=== PATIENT | female | born 1965 | race African-American/Black ===

== ENCOUNTER 2025-02-06 14:12 | Inpatient (IN) | payer BC, MEDICAID, MEDICARE ==
[~2025-02-06] VITALS: Ht 167.6 cm; Wt 51.3 kg
[2025-02-06] VITALS (20 sets, daily range): BP systolic 109–192; BP diastolic 79–137; PULSE 71–107; RESP 12–25; TEMP 36.4–36.418; O2SAT 99–100
[2025-02-06] MEDS: ROCURONIUM BROMIDE 10MG/ML VIAL 5ML IV ONE (14:30)
[2025-02-06] MEDS ORDERED: CEFTRIAXONE 1GM/50ML 50 ML IV ONE (14:30)
[2025-02-06] MEDS: ETOMIDATE 2MG/ML 10ML VIAL IV ONE (14:30)
[2025-02-06] MEDS ORDERED: FENTANYL 2500MCG/250ML PMX 250 ML IV SCH (14:30)
[2025-02-06 14:57] LABS: BASOPHILS % 1.2 % (0.0-2.0); EOSINOPHILS % 1.5 % (0.0-5.0); HEMATOCRIT. 26.0 % (36.0-48.0); HEMOGLOBIN. 8.2 g/dL (12.0-16.0); LYMPHOCYTES % 23.9 % (20.0-50.0); MEAN PLATELET VOLUME 7.2 fl (7.4-10.4); MONOCYTES % 9.5 % (2.0-8.0); NEUTROPHILS % 63.9 % (40.0-76.0); PLATELET 363 x1000/uL (130-400); RED BLOOD CELL COUNT 2.70 mill/uL (4.2-5.4); RED CELL DISTRIBUTION WIDTH 14.5 % (11.6-14.6)
[2025-02-06] MEDS: SODIUM CHLORIDE 0.9% (SEPSIS BOLUS) IV ONE (15:05)
[2025-02-06 15:06] LABS: INR 1.0
[2025-02-06 15:08] LABS: UREA NITROGEN BLOOD 76 mg/dL (9-23)
[2025-02-06] MEDS: CEFTRIAXONE 1GM/50ML 50 ML IV NR (15:09)
[2025-02-06 15:10] LABS: ASPARTATE AMINOTRANSFERASE 38 IU/L (<34); BILIRUBIN DIRECT < 0.1 mg/dL (<=3.0); BILIRUBIN TOTAL 0.2 mg/dL (0.1-1.0); PROTEIN TOTAL 7.6 g/dL (6.0-8.3)
[2025-02-06] MEDS: PROPOFOL 10MG/ML 100ML 100 ML IV SCH (15:11)
[2025-02-06 15:13] LABS: CREATININE 8.8 mg/dL (0.6-1.0)
[2025-02-06 15:15] LABS: TROPONIN I HIGH SENSITIVITY 69 ng/L (3.0-34)
[2025-02-06 15:50] LABS: CLARITY URINE CLEAR (CLEAR); COLOR URINE YELLOW (YELLOW); GLUCOSE URINE TRACE (NEGATIVE); KETONES URINE NEGATIVE (NEGATIVE); LEUKOCYTE ESTERASE URINE 1+ (NEGATIVE); NITRITE URINE NEGATIVE (NEGATIVE); OCCULT BLOOD URINE 2+ (NEGATIVE); PH URINE 6.5 (4.5-8.0); PROTEIN URINE 3+ (NEGATIVE); SPECIFIC GRAVITY URINE 1.012 (1.005-1.030); UROBILINOGEN URINE 0.2 E.U./dL (0.2-1.0)
[2025-02-06] MEDS: FENTANYL 2500MCG/250ML PMX 250 ML IV PRN (15:59)
[2025-02-06 16:22] LABS: *AMPHETAMINES SCREEN URINE NEGATIVE (NEGATIVE); *BARBITURATES SCREEN URINE NEGATIVE (NEGATIVE); *BENZODIAZEPINES SCREEN URINE NEGATIVE (NEGATIVE); *COCAINE SCREEN URINE PRESUMPTIVE POSITIVE (NEGATIVE); CANNABINOID URINE SCREEN NEGATIVE (NEGATIVE); ECSTASY MDMA SCREEN URINE NEGATIVE (NEGATIVE); METHADONE URINE SCREEN NEGATIVE (NEGATIVE); OPIATES URINE SCREEN NEGATIVE (NEGATIVE); PHENCYCLIDINE URINE SCREEN NEGATIVE (NEGATIVE)
[2025-02-06 16:26] LABS: SQUAMOUS EPITHELIAL CELL URINE 3+ /lpf (RARE/1+)
[2025-02-06 16:27] LABS: RBC URINE 15-25 /hpf (0-2); WBC URINE 25-50 /hpf (0-2)
[2025-02-06 16:28] LABS: BACTERIA URINE 1+
[2025-02-06 17:21] LABS: BG BASE EXCESS -9.9 mmol/L (-2.0-3.0); BG CARBOXYHEMOGLOBIN 0.3 % (0.5-1.5); BG DEOXYHEMOGLOBIN 0.1 % (0.0-5.0); BG FRACTION INSPIRED OXYGEN 100; BG HCO3 ACT 16.2 mmol/L (21.0-28.0); BG METHEMOGLOBIN 0.3 % (0.5-1.5); BG OXYGEN SATURATION 99.9 % (94.0-98.0); BG OXYHEMOGLOBIN 99.3 % (94.0-98.0); BG PCO2 36.4 mmHg (32.0-45.0); BG PEEP (cmH2O) 5.0 cmH2O; BG PH 7.266 (7.350-7.450); BG PO2 444.8 mmHg (83.0-108.0); BG SAMPLE SITE RIGHT RADIAL; BG TIDAL VOLUME(mL) 400.0 mL; BG TOTAL HEMOGLOBIN 10.6 g/dL (12.0-16.0); BG VENT MODE VENT - AC; BG VENT RATE 22.0 set
[2025-02-06] MEDS: SODIUM BICARBONATE 8.4% 50MEQ/50ML SYR IV SCH (18:45)
[2025-02-06] MEDS: SODIUM BICARBONATE 8.4% 50MEQ/50ML SYR IV NR (20:57)
[2025-02-06] MEDS: HYDRALAZINE HCL 50MG TABLET PO SCH (20:57)
[2025-02-06] MEDS: AMLODIPINE 10MG TABLET PO SCH (20:57)
[2025-02-06] MEDS: DEXTROSE 50% WATER 50ML SYRINGE IV NR (20:57)
[2025-02-06] MEDS: INSULIN REGULAR (HUMULIN R) 1000UNITS/10ML VIAL IV NR (20:58)
[2025-02-06] MEDS: SODIUM ZIRCONIUM CYCLOSILICATE 10GM/PACKET PO NR (21:01)
[2025-02-06] MEDS: PIPERACILLIN/TAZO 3.375G/50ML 50 ML IV SCH (21:01)
[2025-02-06] MEDS: CALCIUM GLUCONATE 1GM PREMIX 50 ML IV NR (22:01)
[2025-02-06] MEDS: HYDRALAZINE 20MG/ML VIAL IV PRN (22:02)
[2025-02-06] MEDS ORDERED: DOCUSATE SODIUM 100MG CAPSULE PO PRN (22:15)
[2025-02-06] MEDS ORDERED: IPRATROPIUM/ALBUTEROL 0.5-3(2.5)MG/3ML NEB HHN PRN (22:15)
[2025-02-06] MEDS ORDERED: ACETAMINOPHEN 325MG TABLET PO PRN (22:15)
[2025-02-06] MEDS ORDERED: GUAIFENESIN 200MG/10ML SUGAR FREE UDC PO PRN (22:15)
[2025-02-06] MEDS ORDERED: ONDANSETRON HCL 4MG/2ML INJ IV PRN (22:15)
[2025-02-06] MEDS: PANTOPRAZOLE SODIUM 40 MG/VIAL IV SCH (23:28)
[2025-02-06] MEDS: AZITHROMYCIN 500MG/250ML 250 ML IV SCH (23:29)
[2025-02-06] MEDS: VANCOMYCIN 1GM/200ML PMX (BAXTER) IV SCH (23:29)
[2025-02-06] MEDS: DEXT 5%/0.45% NACL 1000ML 1,000 ML IV SCH (23:29)
[2025-02-06 23:46] LABS: PLATELET 383 x1000/uL (130-400); RED BLOOD CELL COUNT 3.20 mill/uL (4.2-5.4); RED CELL DISTRIBUTION WIDTH 14.0 % (11.6-14.6)
[2025-02-07] VITALS (95 sets, daily range): BP systolic 83–132; BP diastolic 57–97; PULSE 70–109; RESP 9–30; TEMP 36.4–37.1; O2SAT 96–100
[2025-02-07] LABS: TRIGLYCERIDE 93 mg/dL (0-150); UREA NITROGEN BLOOD 70 mg/dL (9-23)
[2025-02-07] MEDS ORDERED: FENTANYL 2500MCG/250ML PMX 250 ML IV PRN
[2025-02-07 00:01] LABS: LDL CHOLESTEROL 129 mg/dL (5-100)
[2025-02-07 00:02] LABS: PHOSPHORUS 5.4 mg/dL (2.5-4.9)
[2025-02-07 00:05] LABS: FOLIC ACID (FOLATE) SERUM 15.87 ng/mL (>5.38); VITAMIN B12 SERUM 1098 pg/mL (211-911)
[2025-02-07] MEDS: MIDAZOLAM 100MG/100ML PMX 100 ML IV PRN (00:08)
[2025-02-07 00:10] LABS: CREATININE 8.1 mg/dL (0.6-1.0)
[2025-02-07 02:47] LABS: INFLUENZA TYPE A Presumptive Negative (Pres. Neg.)
[2025-02-07 02:48] LABS: INFLUENZA TYPE B Presumptive Negative (Pres. Neg.)
[2025-02-07 02:50] LABS: RESPIRATORY SYNCYTIAL VIRUS Not Detected (Not Detectd)
[2025-02-07] MEDS ORDERED: NICARDIPINE 50 MG in SODIUM CHLORIDE 0.9% 230 ML IV PRN (05:00)
[2025-02-07 05:28] LABS: HEMATOCRIT. 29.8 % (36.0-48.0); HEMOGLOBIN. 9.2 g/dL (12.0-16.0); MEAN PLATELET VOLUME 7.2 fl (7.4-10.4); PLATELET 338 x1000/uL (130-400); RED BLOOD CELL COUNT 3.12 mill/uL (4.2-5.4); RED CELL DISTRIBUTION WIDTH 14.2 % (11.6-14.6)
[2025-02-07 05:49] LABS: TROPONIN I HIGH SENSITIVITY 736 ng/L (3.0-34)
[2025-02-07 05:50] LABS: CREATININE 8.3 mg/dL (0.6-1.0); T4 FREE 0.99 ng/dL (0.89-1.76); UREA NITROGEN BLOOD 77.0 mg/dL (9-23)
[2025-02-07] MEDS ORDERED: PIPERACILLIN/TAZO 3.375G/50ML 50 ML IV SCH (06:00)
[2025-02-07] MEDS ORDERED: HEPARIN 5000 UNITS/ML VIAL SUBCUT SCH (09:00)
[2025-02-07] MEDS ORDERED: PANTOPRAZOLE SODIUM 40 MG/VIAL IV SCH ×2 (09:00)
[2025-02-07] MEDS: THIAMINE HCL 100MG TABLET PO SCH (09:16)
[2025-02-07] MEDS: ENOXAPARIN 30MG/0.3ML SYR SUBCUT SCH (09:19)
[2025-02-07] MEDS: SODIUM ZIRCONIUM CYCLOSILICATE 10GM/PACKET NG NR (10:08)
[2025-02-07] MEDS ORDERED: DEXTROSE 50% WATER 50ML SYRINGE IV PRN (11:00)
[2025-02-07] MEDS: PROPOFOL 10MG/ML 100ML 100 ML IV PRN (11:20)
[2025-02-07] MEDS: BLOOD SUGAR DIAGNOSTIC STRIP TEST SCH (11:30)
[2025-02-07] MEDS: INSULIN LISPRO 100 UNITS/ML SUBCUT SCH (11:39)
[2025-02-07 12:18] LABS: BG BASE EXCESS -5.3 mmol/L (-2.0-3.0); BG CARBOXYHEMOGLOBIN 0.3 % (0.5-1.5); BG DEOXYHEMOGLOBIN 1.0 % (0.0-5.0); BG FRACTION INSPIRED OXYGEN 35; BG HCO3 ACT 19.9 mmol/L (21.0-28.0); BG METHEMOGLOBIN 0.3 % (0.5-1.5); BG OXYGEN SATURATION 99.0 % (94.0-98.0); BG OXYHEMOGLOBIN 98.4 % (94.0-98.0); BG PCO2 37.4 mmHg (32.0-45.0); BG PEEP (cmH2O) 5.0 cmH2O; BG PH 7.343 (7.350-7.450); BG PO2 138.2 mmHg (83.0-108.0); BG SAMPLE SITE RIGHT RADIAL; BG TIDAL VOLUME(mL) 350.0 mL; BG TOTAL HEMOGLOBIN 8.8 g/dL (12.0-16.0); BG VENT MODE VENT - AC; BG VENT RATE 26.0 set
[2025-02-07 16:33] LABS: TROPONIN I HIGH SENSITIVITY 487 ng/L (3.0-34)
[2025-02-07 16:50] LABS: LYMPHOCYTES % MANUAL 4.0 % (20.0-60.0); MONOCYTES % MANUAL 13.0 % (2.0-8.0); NEUTROPHILS % MANUAL 83.0 % (45.0-75.0); PLATELET ESTIMATE NORMAL
[2025-02-07] MEDS ORDERED: AZITHROMYCIN 500MG/250ML 250 ML IV SCH (20:00)
[2025-02-07] MEDS: PANTOPRAZOLE SODIUM 40 MG/VIAL IV SCH (21:00)
[2025-02-07] MEDS ORDERED: FAMOTIDINE 20MG/2ML VIAL IV SCH (21:00)
[2025-02-07 22:05] LABS: BG BASE EXCESS -7.1 mmol/L (-2.0-3.0); BG CARBOXYHEMOGLOBIN 0.9 % (0.5-1.5); BG DEOXYHEMOGLOBIN 3.1 % (0.0-5.0); BG FRACTION INSPIRED OXYGEN 30; BG HCO3 ACT 18.6 mmol/L (21.0-28.0); BG METHEMOGLOBIN 0.2 % (0.5-1.5); BG OXYGEN SATURATION 96.9 % (94.0-98.0); BG OXYHEMOGLOBIN 95.8 % (94.0-98.0); BG PCO2 38.2 mmHg (32.0-45.0); BG PEEP (cmH2O) 5.0 cmH2O; BG PH 7.305 (7.350-7.450); BG PO2 93.6 mmHg (83.0-108.0); BG SAMPLE SITE LEFT RADIAL; BG TOTAL HEMOGLOBIN 10.9 g/dL (12.0-16.0); BG VENT MODE VENT - CPAP
[2025-02-08] VITALS (79 sets, daily range): BP systolic 78–144; BP diastolic 47–114; PULSE 66–105; RESP 7–24; TEMP 36.4–38.1; O2SAT 96–100
[2025-02-08 05:33] LABS: BASOPHILS % 0.8 % (0.0-2.0); EOSINOPHILS % 1.6 % (0.0-5.0); HEMATOCRIT. 25.5 % (36.0-48.0); HEMOGLOBIN. 8.2 g/dL (12.0-16.0); LYMPHOCYTES % 11.9 % (20.0-50.0); MEAN PLATELET VOLUME 7.5 fl (7.4-10.4); MONOCYTES % 9.1 % (2.0-8.0); NEUTROPHILS % 76.6 % (40.0-76.0); PLATELET 314 x1000/uL (130-400); RED BLOOD CELL COUNT 2.70 mill/uL (4.2-5.4); RED CELL DISTRIBUTION WIDTH 14.4 % (11.6-14.6)
[2025-02-08 05:42] LABS: TRIGLYCERIDE 81 mg/dL (0-150)
[2025-02-08 05:44] LABS: UREA NITROGEN BLOOD 59.0 mg/dL (9-23)
[2025-02-08 05:48] LABS: TROPONIN I HIGH SENSITIVITY 314 ng/L (3.0-34)
[2025-02-08 05:49] LABS: CREATININE 8.0 mg/dL (0.6-1.0)
[2025-02-08 09:10] LABS: FOLATE HEMATOCRIT 29.4 % (34.0-46.6)
[2025-02-08 10:17] LABS: BG BASE EXCESS -5.6 mmol/L (-2.0-3.0); BG CARBOXYHEMOGLOBIN 0.9 % (0.5-1.5); BG DEOXYHEMOGLOBIN 1.2 % (0.0-5.0); BG FLOW(L/min) 2.00 L/min; BG FRACTION INSPIRED OXYGEN 28; BG HCO3 ACT 20.2 mmol/L (21.0-28.0); BG METHEMOGLOBIN 0.3 % (0.5-1.5); BG OXYGEN SATURATION 98.8 % (94.0-98.0); BG OXYHEMOGLOBIN 97.6 % (94.0-98.0); BG PCO2 40.8 mmHg (32.0-45.0); BG PH 7.313 (7.350-7.450); BG PO2 134.7 mmHg (83.0-108.0); BG SAMPLE SITE LEFT BRACHIAL; BG TOTAL HEMOGLOBIN 8.6 g/dL (12.0-16.0); BG VENT MODE NASAL CANNULA
[2025-02-08] MEDS ORDERED: HYDROCODONE/ACETAMINOPHEN 10/325MG TABLET PO PRN (13:30)
[2025-02-08] MEDS ORDERED: NALOXONE HCL 0.4MG/ML VIAL IV PRN ×2 (13:45→14:00)
[2025-02-08] MEDS: HYDROCODONE/ACETAMINOPHEN 5/325MG TABLET PO PRN (13:54)
[2025-02-08] MEDS: SODIUM CHLORIDE 0.45% 1,000 ML IV SCH (17:30)
[2025-02-08] MEDS: AMOXICILLIN/POTASSIUM CLAVULANATE 500/125MG TAB PO SCH (20:31)
[2025-02-08] MEDS: ACETAMINOPHEN 325MG TABLET PO PRN (20:33)
[2025-02-08] MEDS ORDERED: AMOXICILLIN/POTASSIUM CLAVULANATE 875/125MG TAB PO SCH (21:00)
[2025-02-09] VITALS: BP 86/54; PULSE 82; RESP 16; TEMP 36.6; O2SAT 100
[2025-02-09] MEDS: SODIUM CHLORIDE 0.9% 250 ML IV ONE (00:30)
[2025-02-09 08:00] VITALS: BP 117/78; PULSE 85; RESP 16; TEMP 36.1; O2SAT 100
[2025-02-09] MEDS: FOLIC ACID/VITAMIN B COMP W-C TABLET PO SCH (08:56)
[2025-02-09 09:14] LABS: UREA NITROGEN BLOOD 56 mg/dL (9-23)
[2025-02-09 09:16] LABS: PHOSPHORUS 6.4 mg/dL (2.5-4.9)
[2025-02-09 09:25] LABS: CREATININE 7.8 mg/dL (0.6-1.0)
[2025-02-09 09:33] LABS: BASOPHILS % 1.0 % (0.0-2.0); EOSINOPHILS % 6.8 % (0.0-5.0); HEMATOCRIT. 26.2 % (36.0-48.0); HEMOGLOBIN. 8.3 g/dL (12.0-16.0); LYMPHOCYTES % 16.0 % (20.0-50.0); MEAN PLATELET VOLUME 7.4 fl (7.4-10.4); MONOCYTES % 13.1 % (2.0-8.0); NEUTROPHILS % 63.1 % (40.0-76.0); PLATELET 305 x1000/uL (130-400); RED BLOOD CELL COUNT 2.75 mill/uL (4.2-5.4); RED CELL DISTRIBUTION WIDTH 14.5 % (11.6-14.6)
[2025-02-09 10:18] LABS: BG BASE EXCESS -8.1 mmol/L (-2.0-3.0); BG CARBOXYHEMOGLOBIN 0.2 % (0.5-1.5); BG DEOXYHEMOGLOBIN 3.9 % (0.0-5.0); BG FRACTION INSPIRED OXYGEN 21; BG HCO3 ACT 17.9 mmol/L (21.0-28.0); BG METHEMOGLOBIN 0.3 % (0.5-1.5); BG OXYGEN SATURATION 96.1 % (94.0-98.0); BG OXYHEMOGLOBIN 95.6 % (94.0-98.0); BG PCO2 38.7 mmHg (32.0-45.0); BG PH 7.284 (7.350-7.450); BG PO2 85.4 mmHg (83.0-108.0); BG SAMPLE SITE RIGHT BRACHIAL; BG TOTAL HEMOGLOBIN 8.7 g/dL (12.0-16.0); BG VENT MODE ROOM AIR
[2025-02-09 12:00] VITALS: BP 108/75; PULSE 79; RESP 18; TEMP 36.2; O2SAT 98
[2025-02-09] MEDS ORDERED: MAGNESIUM 2 G PREMIX 50 ML IV SCH (13:00)
[2025-02-09 16:00] VITALS: BP 136/89; PULSE 90; RESP 18; TEMP 36.1; O2SAT 96
[2025-02-09] MEDS: MUPIROCIN 2% OINT 22GM NS SCH (22:38)
[2025-02-10 04:00] VITALS: BP 133/84; PULSE 84; RESP 19; TEMP 36.5; O2SAT 97
[2025-02-10 06:25] LABS: UREA NITROGEN BLOOD 48.0 mg/dL (9-23)
[2025-02-10 06:46] LABS: CREATININE 7.0 mg/dL (0.6-1.0)
[2025-02-10 08:00] VITALS: BP 138/90; PULSE 81; RESP 14; TEMP 36.9; O2SAT 95
[2025-02-10] MEDS: MAGNESIUM OXIDE 400MG TABLET PO SCH (11:22)
[2025-02-10] MEDS: FERROUS SULFATE 325MG TABLET PO SCH (11:25)
[2025-02-10 12:00] VITALS: BP 169/99; PULSE 88; RESP 15; TEMP 36.8; O2SAT 94
[2025-02-10] MEDS: HYDRALAZINE 20MG/ML VIAL IV PRN (12:15)
[2025-02-10] MEDS: AMLODIPINE 5MG TABLET PO NR (12:46)
[2025-02-10] MEDS ORDERED: CLONIDINE 0.1MG TABLET PO PRN (13:45)
[2025-02-10 16:19] VITALS: BP 133/87; PULSE 90; RESP 18; O2SAT 100
[2025-02-10 20:00] VITALS: BP 135/97; PULSE 110; RESP 20; TEMP 36.1; O2SAT 95
[2025-02-11] VITALS: BP 134/88; PULSE 97; RESP 20; TEMP 36.1; O2SAT 96
[2025-02-11 04:00] VITALS: BP 125/95; PULSE 82; RESP 20; TEMP 36.6; O2SAT 100
[2025-02-11 08:00] VITALS: BP 125/95; PULSE 73; RESP 20; TEMP 36.3; O2SAT 99
[2025-02-11 12:00] VITALS: BP 137/94; PULSE 75; RESP 18; TEMP 36.8; O2SAT 98
[2025-02-11 13:11] LABS: FOLATE HEMOLYSATE 386.0 ng/mL (Not Estab.); FOLATE RBC 1313 ng/mL (>498)
[2025-02-11 16:00] VITALS: BP 136/88; PULSE 86; RESP 19; TEMP 36.7; O2SAT 97
[2025-02-11 20:00] VITALS: BP 146/97; PULSE 86; RESP 20; TEMP 37.1; O2SAT 99
[2025-02-11 22:27] LABS: UREA NITROGEN BLOOD 45.0 mg/dL (9-23)
[2025-02-11 22:43] LABS: CREATININE 6.6 mg/dL (0.6-1.0)
[2025-02-12] VITALS: BP 145/99; PULSE 85; RESP 20; TEMP 36.2; O2SAT 99
[2025-02-12 04:00] VITALS: BP 151/95; PULSE 79; RESP 16; TEMP 36.6; O2SAT 99
[2025-02-12 06:30] LABS: HEMATOCRIT. 26.1 % (36.0-48.0); HEMOGLOBIN. 8.4 g/dL (12.0-16.0); MEAN PLATELET VOLUME 7.3 fl (7.4-10.4); PLATELET 295 x1000/uL (130-400); RED BLOOD CELL COUNT 2.78 mill/uL (4.2-5.4); RED CELL DISTRIBUTION WIDTH 14.6 % (11.6-14.6)
[2025-02-12 06:36] LABS: UREA NITROGEN BLOOD 46.0 mg/dL (9-23)
[2025-02-12 06:49] LABS: CREATININE 6.3 mg/dL (0.6-1.0)
[2025-02-12 08:00] VITALS: BP_SYST 128; BP_SYST 129; BP_DIAS 78; BP_DIAS 88; PULSE 69; PULSE 76; RESP 17; RESP 18; TEMP 36.7; O2SAT 100; O2SAT 98
[2025-02-12 09:02] VITALS: BP 122/78; PULSE 78; RESP 18; TEMP 98.2
[2025-02-12 09:50] VITALS: BP 128/82; PULSE 78; RESP 18
[2025-02-13 18:17] LABS: EOSINOPHILS % MANUAL 9.0 % (0.0-5.0); LYMPHOCYTES % MANUAL 25.0 % (20.0-60.0); MONOCYTES % MANUAL 13.0 % (2.0-8.0); NEUTROPHILS % MANUAL 53.0 % (45.0-75.0); PLATELET ESTIMATE NORMAL
== END 2025-02-12 10:35 | disposition home or self-care (01) | DRG 208 ==
LOC: ER 14:12 → EDBEDREQ 16:16 → CANRESERV 16:35 → ENRESERV 16:35 → EDBD 18:19 → MICUSO 18:19 → 6WST 02-08 23:37 → 6EST 02-10 13:17
PROVIDERS: ADMIT Hospitalist; ATTEND Hospitalist
PROC: 5A09357 Assistance with Respiratory Ventilation, Less than 24 Consecutive Hours, Continuous Positive Airway Pressure (ICD-10-PCS; principal; 2025-02-06)
PROC: 0BH17EZ Insertion of Endotracheal Airway into Trachea, Via Natural or Artificial Opening (ICD-10-PCS; 2025-02-06)
PROC: 5A1945Z Respiratory Ventilation, 24-96 Consecutive Hours (ICD-10-PCS; 2025-02-06)
PROC: 5A1935Z Respiratory Ventilation, Less than 24 Consecutive Hours (ICD-10-PCS; 2025-02-06)
DX: J96.01 Acute respiratory failure with hypoxia (principal); G92.8 Other toxic encephalopathy; I21.A1 Myocardial infarction type 2; J69.0 Pneumonitis due to inhalation of food and vomit; N17.0 Acute kidney failure with tubular necrosis; I31.4 Cardiac tamponade; I16.1 Hypertensive emergency; F14.10 Cocaine abuse, uncomplicated; D50.9 Iron deficiency anemia, unspecified; I12.0 Hypertensive chronic kidney disease with stage 5 chronic kidney disease or end stage renal disease; N18.5 Chronic kidney disease, stage 5; N39.0 Urinary tract infection, site not specified; E87.20 Acidosis, unspecified; Z59.00 Homelessness unspecified; E87.0 Hyperosmolality and hypernatremia; Z59.01 Sheltered homelessness; E87.5 Hyperkalemia; R68.0 Hypothermia, not associated with low environmental temperature; F19.10 Other psychoactive substance abuse, uncomplicated; E83.42 Hypomagnesemia; Z22.322 Carrier or suspected carrier of Methicillin resistant Staphylococcus aureus; Z79.899 Other long term (current) drug therapy; Y92.89 Other specified places as the place of occurrence of the external cause
CPT/HCPCS: 31500; 31720; 36415; 36600; 71045; 76770; 80048; 80061; 80076; 80305; 80320; 81003; 82270; 82375; 82550; 82607; 82728; 82746; 82747; 82805; 82962; 83036; 83540; 83550; 83605; 83735; 83880; 84100; 84145; 84439; 84443; 84478; 84484; 85014; 85025; 85027; 85044; 86850; 86900; 87070; 87420; 87804; 93005; 93306; 93970; 94002; 94070; 94664; 96365; 96375; 97162; 97166; 99291; A4606; A4615; J0360; J0456; J0612; J0696; J1650; J1815; J2250; J2470; J2543; J2704; J3010; J3373; J3490; J7030; G0480